=== PATIENT | female | born 1965 | race Caucasian/White ===

== ENCOUNTER 2016-12-29 10:35 | Outpatient (CLI) | payer OTHER ==
--- NOTE | 2016-12-29 17:01 | XRAY Report ---
LEFT FOOT THREE VIEWS: 12/29/2016 CLINICAL HISTORY: Pain lateral side. FINDINGS: The soft tissue appears normal. The bones show no fracture or bone lesion. The joints appe ar normal. The 5th metatarsal and cuboid appear intact. IMPRESSION: NORMAL LEFT FOOT. JOB #: [id number] EXT JOB #:[id number]
== END 2016-12-29 10:36 | disposition home or self-care (01) ==
LOC: DI.S 10:35
PROVIDERS: ATTEND Nurse Practitioner Family
DX: M79.671 Pain in right foot (principal)

== ENCOUNTER 2017-09-28 10:11 | Outpatient (CLI) | payer OTHER ==
--- NOTE | 2017-10-01 13:02 | Mammography Report ---
DIGITAL SCREENING MAMMOGRAM: 09/28/2017 CLINICAL INDICATION: A 51-year-old for screening. COMPARISON: 03/2015, 11/2012, 05/2010. TECHNIQUE: Routine CC and MLO projections were obtained of the breasts as well as bilateral laterally exaggerated craniocaudal views. FINDINGS: Parenchymal tissue within both breasts is heterogeneously dense, which may lower the sensitivity of mammography; however, there are no dominant masses, suspicious microcalcifications, or secondary signs of malignancy. In comparison to the previous studies, there are no significant changes. IMPRESSION: NO MAMMOGRAPHIC EVIDENCE OF MALIGNANCY. NO SIGNIFICANT INTERVAL CHANGES. RECOMMENDATION: Screening mammography is recommended annually. BIRADS CATEGORY 1 - NEGATIVE. STANDARD QUALIFYING STATEMENTS: 1. This examination was reviewed with the aid of Computed-Aided Detection (CAD) . 2. A negative or benign imaging report should not delay biopsy if clinically suspicious findings are present. Consider surgical consultation if warranted. More than 5 % of cancers are not identified by imaging. 3. Dense breasts may obscure an underlying neoplasm. TD: 10/01/2017 13:02 ZACH
== END 2017-09-28 10:12 | disposition home or self-care (01) ==
LOC: DI.S 10:11
PROVIDERS: ATTEND Physician Assistant
DX: Z12.31 Encounter for screening mammogram for malignant neoplasm of breast (principal)
CPT/HCPCS: 77067

== ENCOUNTER 2017-11-26 10:15 | Day surgery (SDC) | payer OTHER ==
[2017-11-26] MEDS ORDERED: LACTATED RINGERS 1,000 ML IV ONE (10:22)
[2017-11-26] MEDS ORDERED: ONDANSETRON 4 MG/2 ML VIAL ONE (10:49)
[2017-11-26] MEDS ORDERED: fentaNYL 250 MCG/5 ML VIAL IVP ONE (10:56)
[2017-11-26] MEDS ORDERED: MIDAZOLAM 2 MG/2 ML VIAL IVP ONE (10:56)
[2017-11-26 11:53] VITALS: BP 111/75
== END 2017-11-26 10:16 | disposition home or self-care (01) ==
LOC: SDS 10:15
PROVIDERS: ATTEND Surgery
PROC: 0DJD8ZZ Inspection of Lower Intestinal Tract, Via Natural or Artificial Opening Endoscopic (ICD-10-PCS; principal; 2017-11-26 11:15)
DX: Z12.11 Encounter for screening for malignant neoplasm of colon (principal); K57.30 Diverticulosis of large intestine without perforation or abscess without bleeding; K64.8 Other hemorrhoids; Z87.891 Personal history of nicotine dependence
CPT/HCPCS: 45378; J7120

== ENCOUNTER 2019-06-26 13:17 | Outpatient (CLI) | payer OTHER ==
--- NOTE | 2019-06-27 11:02 | XRAY Report ---
Reason: COUGH Procedure Date: 06/26/2019 Accession Number: [id number] / [id number] Procedure: XRS - Chest 2 View X-Ray CPT Code: 53619 Final Report FULL RESULT: EXAM: CHEST RADIOGRAPHY EXAM DATE: 06/26/2019 01:32 PM HISTORY: COUGH COMPARISON: CHEST 2 VIEW PA/LAT 12/04/2012 4:01 PM TECHNIQUE: Two Views FINDINGS: Lungs/Pleura: No consolidation, edema or pleural effusion. Cardiomediastinal silhouette: Unremarkable accounting for technique. Other: None. IMPRESSION: Normal two view chest. RADIA
== END 2019-06-26 13:18 | disposition home or self-care (01) ==
LOC: DI.S 13:17
PROVIDERS: ATTEND Physician Assistant
DX: R05 Cough (principal)
CPT/HCPCS: 71046

== ENCOUNTER 2020-04-28 11:23 | Outpatient (CLI) | payer OTHER | END 2020-04-28 11:24 | disposition home or self-care (01) | LOC: COV 11:23 | PROVIDERS: ATTEND Family Medicine | DX: R19.7 Diarrhea, unspecified (principal); Z20.828 Contact with and (suspected) exposure to other viral communicable diseases ==

== ENCOUNTER 2020-09-02 14:47 | Outpatient (CLI) | payer OTHER ==
--- NOTE | 2020-09-02 16:30 | XRAY Report ---
PROCEDURE: Thoracic Spine 2 View INDICATIONS: PAIN IN THORACIC SPINE, NECK PAIN TECHNIQUE: 3 views of the thoracic spine were acquired. COMPARISON: None. FINDINGS: Bones: No fractures or dislocations. No suspicious bony lesions. Visualized ribs are intact. Multil evel endplate osteophytes. Soft tissues: No paravertebral stripe thickening. IMPRESSION: Multilevel degenerative disc disease. No acute fracture. No osseous lesion. If symptoms and/or clinic al suspicion for pathology continue, further assessment with repeat plain films, or advanced imaging (e.g., CT, MRI, or bone scan) is recommended for further assessment. Reviewed by: Kena Rae MD on 09/02/2020 4:28 PM PST Approved by: Kena Rae MD on 09/02/2020 4:28 PM PST Station ID: [id number]
--- NOTE | 2020-09-02 16:45 | XRAY Report ---
PROCEDURE: Cervical Spine 2 View INDICATIONS: PAIN IN THORACIC SPINE, SERVICAL SPINE TECHNIQUE: 2 view(s) of the cervical spine were acquired. COMPARISON: None. FINDINGS: Bones: No fractures or dislocations to the C7-T1 level. The lateral masses of C1 appear intact on t he odontoid view. No suspicious bony lesions. There is reversal cervical curvature with trace retro listhesis of C5 on C6. Severe disc space narrowing is present at C5-6 and C6-7. Anterior osteophytes are present at C5, C6 and C7. Multilevel uncovertebral hypertrophy is present. Soft tissues: No prevertebral soft tissue swelling. IMPRESSION: Multilevel degenerative changes most severe at C5-6 and C6-7. Reviewed by: Jodee Quiñones MD on 09/02/2020 3:44 PM [facility] Approved by: Jodee Quiñones MD on 09/02/2020 3:44 PM [facility] Station ID: [id number]
== END 2020-09-02 14:48 | disposition home or self-care (01) ==
LOC: DI.S 14:47
PROVIDERS: ATTEND Nurse Practitioner Family
DX: M51.34 Other intervertebral disc degeneration, thoracic region (principal); M47.812 Spondylosis without myelopathy or radiculopathy, cervical region; M48.02 Spinal stenosis, cervical region

== ENCOUNTER 2020-09-16 18:49 | Outpatient (CLI) | payer OTHER | END 2020-09-16 18:50 | disposition home or self-care (01) | LOC: COV 18:49 | PROVIDERS: ATTEND Family Medicine | DX: R07.0 Pain in throat (principal); J34.89 Other specified disorders of nose and nasal sinuses; Z20.822 Contact with and (suspected) exposure to COVID-19 ==

== ENCOUNTER 2020-11-29 16:38 | Outpatient (CLI) | payer OTHER | END 2020-11-29 16:39 | disposition home or self-care (01) | LOC: COV 16:38 | PROVIDERS: ATTEND Family Medicine | DX: M79.10 Myalgia, unspecified site (principal); R53.83 Other fatigue; R07.0 Pain in throat; Z20.822 Contact with and (suspected) exposure to COVID-19 ==

== ENCOUNTER 2021-01-25 07:57 | Outpatient (CLI) | payer OTHER ==
--- NOTE | 2021-01-26 15:11 | Mammography Report ---
BILATERAL DIGITAL SCREENING MAMMOGRAM 3D/2D WITH EXAGGERATED CC: 01/25/2021 CLINICAL: Family history of breast cancer. Comparison is made to exams dated: 09/28/2017 mammogram, 03/27/2015 mammogram, and 11/21/2012 mammogram - [facility]. The tissue of both breasts is heterogeneously dense. This may lower the sensitivity of mammography. No significant masses, calcifications, or other findings are seen in either breast. There has been no significant interval change. IMPRESSION: NEGATIVE There is no mammographic evidence of malignancy. A 1 year screening mammogram is recommended. This exam was interpreted at Station ID: [id number]. NOTE: For mammograms, a report in lay terms will be sent to the patient. Approximately 15% of breast malignancies will not be visualized mammographically. In the management of a palpable breast mass, a negative mammogram must not discourage biopsy of a clinically suspicious lesion. Electronically Signed By: Keon Bingham M.D. ddp/penrad:01/25/2021 08:47:15 ACR BI-RADS Category 1: Negative 3341F PARENCHYMAL PATTERN: (D) - The breast(s) demonstrate(s) heterogeneously dense fibroglandular leobardo min. BI-RADS CATEGORY: (1) - 1 RECOMMENDATION: (ANNUAL) - Recommend routine annual screening mammography. [id number] 1 year screening LATERALITY: (B)
== END 2021-01-25 07:58 | disposition home or self-care (01) ==
LOC: DI.S 07:57
DX: Z12.31 Encounter for screening mammogram for malignant neoplasm of breast (principal)

== ENCOUNTER 2022-09-14 11:49 | Outpatient (CLI) | payer OTHER ==
--- NOTE | 2022-09-14 18:04 | Ultrasound Report ---
PROCEDURE: Head or Neck Soft Tissue INDICATIONS: THYROID NODULE TECHNIQUE: Real-time scanning was performed of the thyroid gland, with image documentation. COMPARISON: None FINDINGS: Right: Thyroid lobe measures 4.9 x 1.9 x 1.7 cm, and contains multiple nodules. Left: Thyroid lobe measures 5.0 x 1.0 x 1.8 cm, and contains multiple nodules. Isthmus: 2 mm thick. Nodule number: 1 Location: Right upper pole Size: 1.1 x 1.1 x 0.7 cm. Composition: Predominant solid Echogenicity: Isoechoic Shape: wider than tall. Margins: Smooth Echogenic foci: None Total points: 3 ACR TI-RADS category: Mildly suspicious Nodule number: 2 Location: Right upper/middle pole Size: 0.4 x 0.4 x 0.4 cm. Composition: Solid Echogenicity: Hyperechoic Shape: wider than tall. Margins: Smooth Echogenic foci: Macrocalcifications Total points: 4 ACR TI-RADS category: Moderately suspicious Nodule number: 3 Location: Right lower pole/middle pole Size: 0.9 x 0.6 x 0.9 cm. Composition: Spongiform Echogenicity: Markedly hypoechoic Shape: wider than tall. Margins: Smooth Echogenic foci: None Total points: 3 ACR TI-RADS category: Widely suspicious Nodule number: 4 Location: Right lower pole/lower pole Size: 0.4 x 0.3 x 0.4 cm. Composition: Predominant solid Echogenicity: Isoechoic Shape: wider than tall. Margins: Smooth Echogenic foci: None Total points: 3 ACR TI-RADS category: Mildly suspicious Nodule number: 5 Location: Right lower pole Size: 0.6 x 0.6 x 0.5 cm. Composition: Solid Echogenicity: Hypoechoic Shape: wider than tall. Margins: Smooth Echogenic foci: Peripheral calcifications Total points: 6 ACR TI-RADS category: Moderately suspicious Nodule number: 6 Location: Left middle pole Size: 0.7 x 0.4 x 0.5 cm. Composition: Predominant cystic Echogenicity: Anechoic Shape: wider than tall. Margins: Smooth Echogenic foci: Peripheral calcification, common tail artifacts Total points: 3 ACR TI-RADS category: Mildly suspicious IMPRESSION: Multinodular thyroid. Based on the criteria described below, no lesion requires routine follow-up. 12 month follow-up is optional. ACR TI-RADS definitions and recommendations: TI-RADS 1 (benign): 0 points. FNA not needed. TI-RADS 2 (not suspicious): 2 points. FNA not needed. TI-RADS 3 (mildly suspicious): 3 points. "FNA if 2.5 cm or larger, follow up if 1.5 cm or larger (at 1, 3, and 5 years). TI-RADS 4 (moderately suspicious): 4-6 points. "FNA if 1.5 cm or larger, follow up if 1 cm or larger (at 1, 2, 3, and 5 years). TI-RADS 5 (highly suspicious): 7 points or more. "FNA if 1 cm or larger, follow up if 0.5 cm or larger (every year for 5 years). Reviewed by: Jamie Delgado MD on 09/14/2022 6:02 PM PST Approved by: Jamie Delgado MD on 09/14/2022 6:02 PM PST Station ID: [id number]
== END 2022-09-14 11:50 | disposition home or self-care (01) ==
LOC: DI 11:49
PROVIDERS: ATTEND Nurse Practitioner Family
DX: E04.2 Nontoxic multinodular goiter (principal)

== ENCOUNTER 2023-07-30 15:02 | Outpatient (CLI) | payer OTHER ==
--- NOTE | 2023-07-31 11:05 | Mammography Report ---
BILATERAL DIGITAL SCREENING MAMMOGRAM 3D/2D: 07/30/2023 CLINICAL: Routine screening. Family history of breast cancer. Comparison is made to exams dated: 01/25/2021 mammogram, 09/28/2017 mammogram, 03/27/2015 mammogram, ultrasound, and 11/21/2012 mammogram - [facility]. Both breasts are heterogeneously dense, which may obscure small masses (category c / 51-75% glandular tissue). No significant masses, calcifications, or other findings are seen in either breast. There has been no significant interval change. IMPRESSION: NEGATIVE There is no mammographic evidence of malignancy. A 1 year screening mammogram is recommended. Based on the Tyrer Cuzick model (a risk assessment model) the patient's lifetime risk is 9.6% and her 10 year risk is 3.4%. According to the ACR, ACS, and NCCN guidelines, an annual breast MRI exam candace g with mammogram is recommended if the patients lifetime risk is 20% or greater. This exam was interpreted at Station ID: [id number]. NOTE: For mammograms, a report in lay terms will be sent to the patient. Approximately 15% of breast malignancies will not be visualized mammographically. In the management of a palpable breast mass, a negative mammogram must not discourage biopsy of a clinically suspicious lesion. Electronically Signed By: Ele Roland M.D., PH.D eb/garo:07/31/2023 08:31:45 letter sent: No_Letter ACR BI-RADS Category 1: Negative 3341F PARENCHYMAL PATTERN: (D) - The breast(s) demonstrate(s) heterogeneously dense fibroglandular leobardo min. BI-RADS CATEGORY: (1) - 1 Mammogram [id number] 1 year screening LATERALITY: (B)
== END 2023-07-30 15:03 | disposition home or self-care (01) ==
LOC: DI.S 15:02
PROVIDERS: ATTEND Registered Nurse
DX: Z12.31 Encounter for screening mammogram for malignant neoplasm of breast (principal); R92.333 Mammographic heterogeneous density, bilateral breasts; Z80.3 Family history of malignant neoplasm of breast

== ENCOUNTER 2023-11-05 11:49 | Outpatient (CLI) | payer OTHER ==
--- NOTE | 2023-11-05 17:02 | Ultrasound Report ---
PROCEDURE: Soft Tissue Head or Neck INDICATIONS: THYROID NODULE TECHNIQUE: Real-time scanning was performed of the thyroid gland, with image documentation. COMPARISON: 09/14/2022 FINDINGS: Right: Thyroid lobe measures 5.6 x 1.5 x 1.6 cm, and is homogeneous in echotexture. Left: Thyroid lobe measures 5.8 x 1.4 x 1.4 cm, and is homogenous in echotexture. Isthmus: 0.2 cm thick. Nodule number: One Location: Right superior Size: 1.3 x 0.8 x 1.1 cm, previously 1.1 x 1.1 x 0.7 cm. Composition: Solid. Echogenicity: Hypoechoic. Shape: wider than tall (0 points). Margins: Smooth (0 points). Echogenic foci: None (0 points). Total points: 4 ACR TI-RADS category: 4 Nodule number: Two Location: Right Size: 1.1 x 0.7 x 1.0 cm, previously 0.9 x 0.6 x 0.9 cm. Composition: Spongiform (0 points). Echogenicity: Hypoechoic (2 points). Shape: wider than tall (0 points). Margins: Smooth (0 points). Echogenic foci: None (0 points). Total points: 2 ACR TI-RADS category: TI-RADS 2: Not suspicious. Nodule number: Three Location: Left mid Size: 1.1 x 0.6 x 0.8 cm, previously 1.1 x 0.6 x 0.8 cm. Composition: Solid. Echogenicity: Isoechoic. Shape: wider than tall (0 points). Margins: Smooth (0 points). Echogenic foci: None (0 points). Total points: 3 ACR TI-RADS category: 3 Remainder of the thyroid nodules identified are subcentimeter. IMPRESSION: Stable category 3 and category 4 nodules. Nodule 1 category 4 nodule measuring 1.3 cm. ACR guidelines recommend continued follow-up as below.- ACR TI-RADS definitions and recommendations: TI-RADS 1 (benign): 0 points. FNA not needed. TI-RADS 2 (not suspicious): 2 points. FNA not needed. TI-RADS 3 (mildly suspicious): 3 points. "FNA if 2.5 cm or larger, follow up if 1.5 cm or larger (at 1, 3, and 5 years). TI-RADS 4 (moderately suspicious): 4-6 points. "FNA if 1.5 cm or larger, follow up if 1 cm or larger (at 1, 2, 3, and 5 years). TI-RADS 5 (highly suspicious): 7 points or more. "FNA if 1 cm or larger, follow up if 0.5 cm or larger (every year for 5 years). Reviewed by: Jose Sanford MD on 11/05/2023 4:01 PM [facility] Approved by: Jose Sanford MD on 11/05/2023 4:01 PM [facility] Station ID: [id number]
== END 2023-11-05 11:50 | disposition home or self-care (01) ==
LOC: DI 11:49
PROVIDERS: ATTEND Registered Nurse
DX: E04.2 Nontoxic multinodular goiter (principal)